=== PATIENT | male | born 1970 | race Caucasian/White ===

== ENCOUNTER 2021-05-01 15:19 | Observation (INO) | payer BC, OTHER ==
[2021-05-01 16:12] LABS: Glucose,Whole Blood 94 mg/dL (75-99)
--- NOTE | 2021-05-01 17:06 | CT ---
EXAMINATION TYPE: CT brain wo con for TPA DATE OF EXAM: 05/01/2021 COMPARISON: None HISTORY: Left foot numbness and inability to flex the ankle. CT DLP: 1158.4 mGycm Automated exposure control for dose reduction was used. Ventricles and sulci appear normal. There is no mass effect nor midline shift. There is no sign of in tracranial hemorrhage. The calvarium is intact. There is normal aeration of the mastoid sinuses. IMPRESSION: Normal unenhanced head CT scan.
--- NOTE | 2021-05-01 17:21 | XR ---
EXAMINATION TYPE: XR lumbosacral spine min 4V DATE OF EXAM: 05/01/2021 COMPARISON: NONE HISTORY: Foot numbness TECHNIQUE: 5 views FINDINGS: Lumbar vertebra have normal alignment. Posterior elements are intact. There is some narrowi ng at L3-4 and L4-5 disc spaces. There is mild spurring of the endplates. There is no compression fra cture. Sacroiliac joints are intact. There are multiple calcifications over the kidneys. IMPRESSION: Degenerative changes in the lumbar spine. No fracture. Numerous renal calculi.
[2021-05-01 17:45] LABS: Anisocytosis Slight; Basophils # (A) 0.1 k/uL (0-0.2); Basophils % (A) 1 %; Eosinophils # (A) 0.2 k/uL (0-0.7); Eosinophils % (A) 3 %; HGB 13.1 gm/dL (13.0-17.5); Lymphocytes # (A) 2.1 k/uL (1.0-4.8); Lymphocytes % (A) 30 %; MCH 29.6 pg (25.0-35.0); MCHC 31.3 g/dL (31.0-37.0); MCV 94.6 fL (80.0-100.0); Monocytes # (A) 0.4 k/uL (0-1.0); Monocytes % (A) 6 %; Neutrophils % (A) 58 %; Platelet Count 312 k/uL (150-450); RBC 4.44 m/uL (4.30-5.90); RDW 17.3 % (11.5-15.5); WBC 6.9 k/uL (3.8-10.6)
[2021-05-01 17:55] LABS: ALT 28 U/L (4-49); AST 46 U/L (17-59); African American GFR (CKD) >90 (>60 ml/min/1.73 sqM); Albumin 4.7 g/dL (3.5-5.0); Alkaline Phosphatase 114 U/L (38-126); Anion Gap 9 mmol/L; Blood Urea Nitrogen 13 mg/dL (9-20); Calcium 9.5 mg/dL (8.4-10.2); Carbon Dioxide 27 mmol/L (22-30); Chloride 103 mmol/L (98-107); Glucose 122 mg/dL (74-99); Non-African American GFR(CKD) >90 (>60 ml/min/1.73 sqM); Potassium 3.8 mmol/L (3.5-5.1); Sodium 139 mmol/L (137-145); Total Bilirubin 0.2 mg/dL (0.2-1.3); Total Protein 7.4 g/dL (6.3-8.2)
[2021-05-01] MEDS ORDERED: ASPIRIN 325 MG TAB PO STA (17:58)
--- NOTE | 2021-05-01 18:01 | ED ---
General Adult HPI - General Chief complaint: Extremity Problem,Nontraumatic Stated complaint: L foot numbness Time Seen by Provider: 05/01/21 16:20 Source: patient, RN notes reviewed, old records reviewed Mode of arrival: wheelchair Limitations: no limitations - History of Present Illness Initial comments: 51-year-old male resents for evaluation of numbness in the left foot, and inability to flex at the ankle. Patient denies injury. He does have chronic back pain. But denies new or worsening pain in the back. He has no history of TIA or CVA. He denies weakness in the upper extremities. No facial droop. No abnormal speech. No headache. - Related Data Home Medications Medication Instructions Recorded Confirmed Gabapentin [Neurontin] 900 mg PO TID 05/01/21 05/01/21 HYDROcodone/APAP 10-325MG [[place] 1 tab PO Q6H PRN 05/01/21 05/01/21 10-325] Pantoprazole Sodium [Protonix] 40 mg PO BID 05/01/21 05/01/21 Allergies Allergy/AdvReac Type Severity Reaction Status Date / Time morphine Allergy Itching Verified 05/01/21 18:11 propoxyphene AdvReac Nausea & Verified 05/01/21 18:11 [From Darvocet-N] Vomiting & Diarrhea Review of Systems ROS Statement: Those systems with pertinent positive or pertinent negative responses have been documented in the HPI. ROS Other: All systems not noted in ROS Statement are negative. Past Medical History Past Medical History: GERD/Reflux History of Any Multi-Drug Resistant Organisms: None Reported Past Surgical History: Orthopedic Surgery Additional Past Surgical History / Comment(s): neal hands Past Psychological History: No Psychological Hx Reported Smoking Status: Current every day smoker Past Alcohol Use History: None Reported Past Drug Use History: None Reported General Exam Limitations: no limitations General appearance: alert, in no apparent distress Head exam: Present: atraumatic, normocephalic Eye exam: Present: normal appearance, PERRL ENT exam: Present: normal exam Neck exam: Present: normal inspection. Absent: tenderness, meningismus Respiratory exam: Present: normal lung sounds bilaterally. Absent: respiratory distress Cardiovascular Exam: Present: regular rate, normal rhythm GI/Abdominal exam: Present: soft. Absent: distended, tenderness, guarding Extremities exam: Present: normal inspection, normal capillary refill, other (Distal pulses intact) Neurological exam: Present: alert, oriented X3, CN II-XII intact, motor sensory deficit (Sensory deficit on the dorsum of the foot, inability to dorsiflex left foot otherwise unremarkable neurologic exam.) Psychiatric exam: Present: normal affect, normal mood Skin exam: Present: warm, dry, intact Course Vital Signs 05/01/21 16:01 Temperature 98.3 F Pulse Rate 85 Respiratory 20 Rate Blood Pressure 133/93 O2 Sat by Pulse 100 Oximetry - Reevaluation(s) Reevaluation #1: 05/01/21 1754 I did discuss case with Dr. Bright, for neurology. Does recommend workup for central cause of weakness, rule out CVA and he will see the patient in consultation tomorrow. EKG Findings - EKG Comments: EKG Findings:: EKG: Normal sinus rhythm, right bundle-branch block, rate of 77, MS interval 136, QRS duration 148, QTC [address] segment elevation. Medical Decision Making - Medical Decision Making 51-year-old male with left foot numbness and inability to dorsiflex. Patient has good proximal strength in all extremities. NIH of 14 sensory deficit in the top of the foot. Otherwise unremarkable neurologic exam. This may be foot drop secondary to a peripheral nerve injury however after I discussed case with Dr. Bright he did recommend to rule out CVA in this patient. CT of the brain was ordered which is negative for hemorrhage or acute findings. Patient will be admitted on aspirin and IV fluids for CVA rule out. Case discussed with [facility] - Lab Data Result diagrams: 05/01/21 17:36 05/01/21 17:36 Lab Results 05/01/21 05/01/21 05/01/21 Range/Units 16:10 17:36 17:36 WBC 6.9 (3.8-10.6) k/uL RBC 4.44 (4.30-5.90) m/uL Hgb 13.1 (13.0-17.5) gm/dL Hct 42.0 (39.0-53.0) % MCV 94.6 (80.0-100.0) fL MCH 29.6 (25.0-35.0) pg MCHC 31.3 (31.0-37.0) g/dL RDW 17.3 H (11.5-15.5) % Plt Count 312 (150-450) k/uL MPV 7.0 Neutrophils % 58 % Lymphocytes % 30 % Monocytes % 6 % Eosinophils % 3 % Basophils % 1 % Neutrophils # 4.0 (1.3-7.7) k/uL Lymphocytes # 2.1 (1.0-4.8) k/uL Monocytes # 0.4 (0-1.0) k/uL Eosinophils # 0.2 (0-0.7) k/uL Basophils # 0.1 (0-0.2) k/uL Anisocytosis Slight PT 10.2 (9.0-12.0) sec INR 0.9 (<1.2) APTT 24.7 (22.0-30.0) sec Sodium (137-145) mmol/L Potassium (3.5-5.1) mmol/L Chloride (98-107) mmol/L Carbon Dioxide (22-30) mmol/L Anion Gap mmol/L BUN (9-20) mg/dL Creatinine (0.66-1.25) mg/dL Est GFR (CKD-EPI)AfAm (>60 ml/min/1.73 sqM) Est GFR (CKD-EPI)NonAf (>60 ml/min/1.73 sqM) Glucose (74-99) mg/dL POC Glucose (mg/dL) 94 (75-99) mg/dL POC Glu Pest Control Worker ID [facility] Calcium (8.4-10.2) mg/dL Total Bilirubin (0.2-1.3) mg/dL AST (17-59) U/L ALT (4-49) U/L Alkaline Phosphatase (38-126) U/L Troponin I (0.000-0.034) ng/mL Total Protein (6.3-8.2) g/dL Albumin (3.5-5.0) g/dL 05/01/21 05/01/21 Range/Units 17:36 17:36 WBC (3.8-10.6) k/uL RBC (4.30-5.90) m/uL Hgb (13.0-17.5) gm/dL Hct (39.0-53.0) % MCV (80.0-100.0) fL MCH (25.0-35.0) pg MCHC (31.0-37.0) g/dL RDW (11.5-15.5) % Plt Count (150-450) k/uL MPV Neutrophils % % Lymphocytes % % Monocytes % % Eosinophils % % Basophils % % Neutrophils # (1.3-7.7) k/uL Lymphocytes # (1.0-4.8) k/uL Monocytes # (0-1.0) k/uL Eosinophils # (0-0.7) k/uL Basophils # (0-0.2) k/uL Anisocytosis PT (9.0-12.0) sec INR (<1.2) APTT (22.0-30.0) sec Sodium 139 (137-145) mmol/L Potassium 3.8 (3.5-5.1) mmol/L Chloride 103 (98-107) mmol/L Carbon Dioxide 27 (22-30) mmol/L Anion Gap 9 mmol/L BUN 13 (9-20) mg/dL Creatinine 0.95 (0.66-1.25) mg/dL Est GFR (CKD-EPI)AfAm >90 (>60 ml/min/1.73 sqM) Est GFR (CKD-EPI)NonAf >90 (>60 ml/min/1.73 sqM) Glucose 122 H (74-99) mg/dL POC Glucose (mg/dL) (75-99) mg/dL POC Glu Pest Control Worker ID Calcium 9.5 (8.4-10.2) mg/dL Total Bilirubin 0.2 (0.2-1.3) mg/dL AST 46 (17-59) U/L ALT 28 (4-49) U/L Alkaline Phosphatase 114 (38-126) U/L Troponin I <0.012 (0.000-0.034) ng/mL Total Protein 7.4 (6.3-8.2) g/dL Albumin 4.7 (3.5-5.0) g/dL Disposition Clinical Impression: Foot drop, left foot Narrative: Rule out CVA versus peripheral nerve injury Disposition: ADMITTED IP TO THIS [facility] Condition: Stable Is patient prescribed a controlled substance at d/c from ED?: No Referrals: Nonstaff,Physician [Primary Care Provider] - 1-2 days Decision to Admit Reason: Admit from EC Decision Date: 05/01/21 Decision Time: 18:01
[2021-05-01 18:18] LABS: INR 0.9 (<1.2); Partial Thromboplastin Time 24.7 sec (22.0-30.0); Prothrombin Time 10.2 sec (9.0-12.0)
[2021-05-01 20:31] LABS: T4, Free (Free Thyroxine) 0.98 ng/dL (0.78-2.19)
[2021-05-01] MEDS ORDERED: ATORVASTATIN 80 MG TAB PO SCH (21:00)
[2021-05-01] MEDS: SODIUM CHLORIDE 0.9% 1,000 ML IV SCH (21:46)
[2021-05-02] MEDS: HYDROcodone/APAP 10-325MG 1 EACH TAB PO PRN ×4 (00:08→20:42)
[2021-05-02] MEDS: GABAPENTIN 300 MG CAP PO SCH ×4 (00:08→21:06)
[2021-05-02 05:18] LABS: Hemoglobin A1C 5.5 % (4.0-6.0)
--- NOTE | 2021-05-02 08:23 | US ---
EXAMINATION TYPE: US carotid duplex BILAT DATE OF EXAM: 05/02/2021 COMPARISON: NONE CLINICAL HISTORY: Stenosis. Acute onset neuro deficit EXAM MEASUREMENTS: RIGHT: Peak Systolic Velocity (PSV) cm/sec ----- Right CCA: 82.3 ----- Right ICA: 86.7 ----- Right ECA: 77.9 ICA/CCA ratio: 1.1 RIGHT: End Diastole cm/sec ----- Right CCA: 27.4 ----- Right ICA: 30.7 ----- Right ECA: 17.5 LEFT: Peak Systolic Velocity (PSV) cm/sec ----- Left CCA: 80.5 ----- Left ICA: 99.0 ----- Left ECA: 46.2 ICA/CCA ratio: 1.2 LEFT: End Diastole cm/sec ----- Left CCA: 26.3 ----- Left ICA: 40.9 ----- Left ECA: 16.5 VERTEBRALS (direction of flow): Right Vertebral: Antegrade Left Vertebral: Antegrade Rhythm: Normal No significant stenosis seen. No elevated velocities. Grayscale images show no significant focal plaque. IMPRESSION: No hemodynamically significant stenosis in either internal carotid artery. NASCET criteria was used in interpretation of this exam? Criteria for Assigning % of Stenosis / Diameter reduction (Estimation based on the indirect measurements of the internal carotid artery velocities (ICA PSV). 1. Normal (no stenosis)=ICA PSV < 125 cm/s: ratio < 2.0: ICA EDV<40 cm/s. 2. Less than 50% stenosis=ICA PSV < 125 cm/s: ratio < 2.0: ICA EDV<40 cm/s. 3. 50 to 69% stenosis=ICA PSV of 125 to 230 cm/s: ration 2.0 ? 4.0: ICA EDV 40-100 cm/s. 4. Greater than 70% stenosis to near occlusion= ICA PSV > 230 cm/s: ratio > 4.0: ICA EDV > 100 cm/s. 5. Near occlusion= ICA PSV velocities may be low or undetectable: variable ratio and ICA EDV. 6. Total occlusion=unable to detect flow.
[2021-05-02] MEDS ORDERED: ASPIRIN 325 MG TAB PO SCH (09:00)
[2021-05-02] MEDS: PANTOPRAZOLE 40 MG TABLET PO SCH ×2 (09:58→20:41)
--- NOTE | 2021-05-02 11:07 | ECHOF ---
Referral Reason:Thrombus MEASUREMENTS -------- HEIGHT: 175.3 cm WEIGHT: 74.8 kg BP: 167/103 RVIDd: 3.4 cm (< 3.3) IVSd: 1.2 cm (0.6 - 1.1) LVIDd: 5.3 cm (3.9 - 5.3) LVPWd: 0.9 cm (0.6 - 1.1) IVSs: 1.5 cm LVIDs: 3.2 cm LVPWs: 1.9 cm LAESV Index (A-L): 18.24 ml/m Ao Diam: 3.7 cm (2.0 - 3.7) AV Cusp: 2.4 cm (1.5 - 2.6) LA Diam: 3.4 cm (2.7 - 3.8) MV EXCURSION: 16.144 mm (> 18.000) MV EF SLOPE: 83 mm/s (70 - 150) EPSS: 0.6 cm MV E Jose Alejandro: 0.92 m/s MV DecT: 186 ms MV A Jose Alejandro: 0.80 m/s MV E/A Ratio: 1.14 RAP: 5.00 mmHg RVSP: 28.70 mmHg FINDINGS -------- Sinus rhythm. This was a technically adequate study. The left ventricular size is normal. There is mild concentric left ventricular hypertrophy. Overa ll left ventricular systolic function is normal with, an EF between 55 - 60 %. The diastolic fillin g pattern is normal for the age of the patient 10.22. The right ventricle is mildly enlarged. Normal LA size by volume 22+/-6 ml/m2. The right atrial size is normal. Interatrial and interventricular septum intact. There is no evidence of aortic regurgitation. There is no evidence of aortic stenosis. No mitral regurgitation. Mild tricuspid regurgitation present. There is no evidence of pulmonary hypertension. The right v entricular systolic pressure, as measured by Doppler, is 28.70mmHg. There is no pulmonic regurgitation present. The aortic root size is normal. The inferior vena cava is mildly dilated. There is no pericardial effusion. CONCLUSIONS -------- 1. The left ventricular size is normal. 2. There is mild concentric left ventricular hypertrophy. 3. Overall left ventricular systolic function is normal with, an EF between 55 - 60 %. 4. The diastolic filling pattern is normal for the age of the patient 10.22 5. The right ventricle is mildly enlarged. 6. Mild tricuspid regurgitation present. 7. The inferior vena cava is mildly dilated. BOOM STICK MAN: Rita Corado RDCS
--- NOTE | 2021-05-02 11:39 | P.CNNES ---
History of Present Illness Consult date: 05/02/21 Requesting physician: Blayne Khan Reason for Consult: left foot drop History of Present Illness: This is a 51-year-old right-handed gentleman with medical history of chronic low back pain, GERD who presented emergency department on 05/01/2021 because of numbness and weakness on the left foot. 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 He noticed the symptoms at around 5am on 05/01/2021 and last normal was on 04/30 at around 11pm. He has chronic lower back pain, and it is in the lower region of back in center area and radiates across but denies any worsening of his lower back. He denies any weakness or numbness any where else. Denies of visual disturbance, speech difficulty, difficulty swallowing. He denies any bladder or bowel incontinence or anything that is new. Denies facial weakness. He denies trauma to his lower extremities. He denies history of stroke or TIA. He denies any fever, any gastrointestinal symptoms or respiratory symptoms. He smokes about 1/2PPD and has been smoking for 35 years (in past he used to smoke upto 3PPD). He rarely drinks alcohol. He denies of illicit drug use. Regarding his lower back pain in the past he had MRI and currently follows-up with pain specialist. His home medication consists of both tonic 4 mg 1 tablet twice a day, [place] 10- 325mg 1 tab Q6hr, and Gabapentin 300mg 3 tab tid (he sometimes only takes bid if driving). Workup in the hospital consisted of: Initial vital signs as a blood pressure 133/93, heart rate of 85, respiratory of 20, temperature of 98.3 Fahrenheit oral pulse ox of 100% at room air. CBC with differential seems unremarkable. Chemistry panel also seems unremarkable. Calcium is 9.5, AST of 46 and ALT of 28 which is within normal limits. CT of the head is reported as normal unenhanced head CT scan. Lumbar x-rays reported as degenerative changes in the lumbar spine. No fracture. Numerous renal calculi. In the body of the report it is reported that there is some narrowing at the L3-L4 and L4-L5. Carotid duplex: No hemodynamically significant stenosis in either internal carotid artery. EKG is reported as normal sinus rhythm. Right bundle branch block. Abnormal EKG. TSH: 0220 (low) but Free T4: 0.98 (normal). Hemoglobin A1c: 5.5 (normal). Review of Systems Review of system: The 12 point system was reviewed and apparent positive and negative per HPI. Past Medical History Past Medical History: GERD/Reflux History of Any Multi-Drug Resistant Organisms: None Reported Past Surgical History: Orthopedic Surgery Additional Past Surgical History / Comment(s): neal hands Past Psychological History: No Psychological Hx Reported Smoking Status: Current every day smoker Past Alcohol Use History: None Reported Past Drug Use History: None Reported - Past Family History Mother Family Medical History: Dementia Father Family Medical History: Renal Disease Medications and Allergies Home Medications Medication Instructions Recorded Confirmed Type Gabapentin [Neurontin] 900 mg PO TID 05/01/21 05/01/21 History HYDROcodone/APAP 10-325MG [[place] 1 tab PO Q6H PRN 05/01/21 05/01/21 History 10-325] Pantoprazole Sodium [Protonix] 40 mg PO BID 05/01/21 05/01/21 History Allergies Allergy/AdvReac Type Severity Reaction Status Date / Time morphine Allergy Itching Verified 05/01/21 18:11 propoxyphene AdvReac Nausea & Verified 05/01/21 18:11 [From Angela-N] Vomiting & Diarrhea Physical Examination - Vital Signs Vital Signs: Vital Signs Temp Pulse Resp BP Pulse Ox 05/01/21 16:01 98.3 F 85 20 133/93 100 Intake and Output 05/01/21 05/01/21 05/01/21 06:59 14:59 22:59 Other: Weight 77.111 kg GENERAL: The patient is lying in bed and is not in acute distress. CHEST: The heart rate is regular rate rhythm. No murmurs to auscultation. No carotid bruit bilaterally. LUNG: Clear to auscultation bilaterally no wheezing noted throughout. Not labored breathing. ABDOMEN/GI: Bowel sounds present in all 4 quadrants. No tenderness to palpation throughout. NEUROLOGICAL: Higher mental function: The patient is awake, alert, oriented to self, place and time. Patient is following commands. No aphasia and no neglect. Cranial nerves: The pupils are round, equal and reactive to light and accom modation. Visual wong are full to confrontation throughout. Extraocular movement is intact no nystagmus is noted. Facial sensation is normal to touch throughout. The facial strength is normal throughout. Hearing is normal bilaterally to hand rub. Tongue is midline and moved [id number] without any difficulty. No dysarthria is noted. Shoulder shrug is normal bilaterally. Motor: Gait is deferred. The strength is left ankle dorsiflexion and inversion is 0/5. Left ankle plantarflexion is 5-. Otherwise 5/5 throughout. Normal tone and bulk. Cerebellum: Normal finger to nose bilaterally. Sensation: Sensation is decreased to touch and pinprick in the proximal left dorsum ankle region (he felt yesterday it was distal ankle region). Otherwise normal throughout. Reflexes (right/left): 2+ throughout except patellar are 2-3+ bilaterally. Plantars are downgoing bilaterally. Results - Laboratory Findings CBC and BMP: 05/01/21 17:36 08 17:36 Abnormal Lab Findings: Abnormal Labs 05/01/21 05/01/21 17:36 17:36 RDW 17.3 H Glucose 122 H Assessment and Plan Assessment: Left foot drop. Unknown exact etiology at this time (possibly due to compression from position he slept. Rule out mass effect in lower back and ischemic stroke (unlikely). Chronic lower back pain History of GERD Nicotine use (smoke 1/2 PPD and has been smoking for 35 years). Plan: The ED team ordered 2-D echo, lipid panel. I ordered MRI of the lumbar spine and MRI Brain. ED team's gave the patient aspirin 325mg once inside the patient on aspirin 325 daily and Lipitor 80 mg daily at bedtime for secondary stroke prophylaxis. I lowered it to ASA 81mg and Lipitor 40mg daily. PT, OT and DIRECTOR DIGITAL COMMUNICATIONS are consulted. Recommend left ankle-foot orthosis (AFO) as inpatient. Recommend EMG with nerve conduction study as an outpatient. We'll defer the rest of the medical management to the primary team. Patient is counseled on tobacco cessation. The plan is discussed with the patient and his nurse. Thank you for the consultation. William Bright M.D. Neuro-hospitalist Time with Patient: Greater than 30
--- NOTE | 2021-05-02 12:42 | MR ---
EXAMINATION TYPE: MR brain wo con DATE OF EXAM: 05/02/2021 12:33 PM COMPARISON: NONE HISTORY: Left foot weakness, CVA FINDINGS: The ventricles, basal cisterns and sulci overlying the cerebral convexities are mildly enlarged. There is evidence of mild periventricular white matter ischemic demyelination. Remote deep white matter insults are also noted. No acute edema is seen on diffusion weighted imaging. There is no evidence for midline shift or mass effect. Acute intracranial hemorrhage or extra-axial collection is not evident. The paranasal sinuses and mastoid air cells are well-aerated. IMPRESSION: Age-related atrophic and chronic small vessel ischemic change. No acute intracranial process at this time.
--- NOTE | 2021-05-02 13:00 | P.HPIM ---
History of Present Illness This is a pleasant 51 years old male with past medical history of GERD. Patient presents because of left foot numbness with difficulty walking secondary to weakness in his left foot especially with dorsiflexion of one-day duration. He has chronic back pain but no headache or weakness in other parts of the body. No blurred vision or slurred speech Denies chest pain or dyspnea. No change in urine or bowel habits. No fever He smokes half pack per day and he was counseled to quit and he agrees to the nicotine patch. No alcohol or illicit drugs Vitas looks stable, blood pressure is slightly elevated at 167/103. Labs including CBC, INR, BMP, liver enzymes and troponins are unremarkable. He is edges slightly low at 0.2, normal free T4 0.9. Local slightly elevated at 122. Carotid Doppler: No significant stenosis. Lumbar spine x-ray: Degenerative changes in the lumbar spine. No fracture. Numerous renal calculi CT of the brain:no acute process. EKG: Normal sinus rhythm at [address]-T changes Review of Systems CONSTITUTIONAL: No fever, no malaise, no fatigue. HEENT: No recent visual problems or hearing problems. Denied any sore throat. CARDIOVASCULAR: No orthopnea, PND, no palpitations, no syncope. PULMONARY: No shortness of breath, no cough, no hemoptysis. GASTROINTESTINAL: No diarrhea, no nausea, no vomiting, no abdominal pain. Normoactive bowel sounds. NEUROLOGICAL: No headaches, no weakness, no numbness. HEMATOLOGICAL: Denies any bleeding or petechiae. GENITOURINARY: Denies any burning micturition, frequency, or urgency. MUSCULOSKELETAL/RHEUMATOLOGICAL: Denies any joint pain, swelling, or any muscle pain. ENDOCRINE: Denies any polyuria or polydipsia. Past Medical History Past Medical History: GERD/Reflux History of Any Multi-Drug Resistant Organisms: None Reported Past Surgical History: Orthopedic Surgery Additional Past Surgical History / Comment(s): neal hands Past Psychological History: No Psychological Hx Reported Smoking Status: Current every day smoker Past Alcohol Use History: None Reported Past Drug Use History: None Reported - Past Family History Mother Family Medical History: Dementia Father Family Medical History: Renal Disease Medications and Allergies Home Medications Medication Instructions Recorded Confirmed Type Gabapentin [Neurontin] 900 mg PO TID 05/01/21 05/01/21 History HYDROcodone/APAP 10-325MG [[place] 1 tab PO Q6H PRN 05/01/21 05/01/21 History 10-325] Pantoprazole Sodium [Protonix] 40 mg PO BID 05/01/21 05/01/21 History Allergies Allergy/AdvReac Type Severity Reaction Status Date / Time morphine Allergy Itching Verified 05/01/21 18:11 propoxyphene AdvReac Nausea & Verified 05/01/21 18:11 [From Darvocet-N] Vomiting & Diarrhea Physical Exam Vitals: Vital Signs Temp Pulse Pulse Resp BP BP BP 05/02/21 04:00 70 18 167/103 05/02/21 00:00 98.0 F 83 18 169/106 167/102 05/01/21 16:01 98.3 F 85 20 133/93 Pulse Ox 05/02/21 04:00 99 05/02/21 00:00 100 05/01/21 16:01 100 Intake and Output 05/01/21 05/02/21 05/02/21 22:59 06:59 14:59 Output Total 900 550 Balance -900 -550 Output: Urine 900 550 Other: # Bowel Movements 1 Weight 77.111 kg 75 kg GENERAL: The patient is alert and oriented x3, not in any acute distress. Well developed, well nourished. HEENT: Pupils are round and equally reacting to light. EOMI. No scleral icterus. No conjunctival pallor. Normocephalic, atraumatic. No pharyngeal erythema. No thyromegaly. CARDIOVASCULAR: S1 and S2 present. No murmurs, rubs, or gallops. PULMONARY: Chest is clear to auscultation, no wheezing or crackles. ABDOMEN: Soft, nontender, nondistended, normoactive bowel sounds. No palpable organomegaly. MUSCULOSKELETAL: No joint swelling or deformity. EXTREMITIES: No cyanosis, clubbing, or pedal edema. -NEUROLOGICAL: Gross neurological examination did not reveal any focal deficits. Left foot is weak dorsiflexion and numbness on the dorsum SKIN: No rashes. No petechiae Results CBC & Chem 7: 05/01/21 17:36 05/01/21 17:36 Labs: Abnormal Lab Results - Last 24 Hours (Table) 05/01/21 05/01/21 05/01/21 Range/Units 17:36 17:36 19:00 RDW 17.3 H (11.5-15.5) % Glucose 122 H (74-99) mg/dL TSH 0.220 L (0.465-4.680) mIU/L Thrombosis Risk Factor Assmnt - Choose All That Apply Each Factor Represents 1 point: Age 41-60 years Thrombosis Risk Factor Assessment Total Risk Factor Score: 1 Thrombosis Risk Factor Assessment Level: Low Risk Assessment and Plan Assessment: Left foot weakness and numbness, possible stroke versus neuropathy History of GERD High blood pressure, Nicotine dependence Plan: This is a pleasant 51 years old male who presents with left foot weakness and numbness. Continue with aspirin. Neurology consult Labs and medication were reviewed.. Continue same treatment. Continue with symptomatic treatment. Resume home medication. Monitor lytes and vitals. DVT and GI prophylaxis. Further recommendations depends on the clinical course of the patient DVT prophylaxis: Subcutaneous heparin GI Prophylaxis: Pepcid PT/OT: Pending Prognosis is guarded
--- NOTE | 2021-05-02 13:17 | MR ---
EXAMINATION TYPE: MR lumbar spine wo/w con DATE OF EXAM: 05/02/2021 12:37 PM COMPARISON: NONE HISTORY: Left foot weakness with low back pain CONTRAST: The patient was injected with 7 mL intravenous Gadavist gadolinium contrast. Multiplanar, MultiSpin echo imaging of the lumbar spine was performed. L1-L2: Normal disc appearance without desiccation. No herniation, protrusion or disc bulging. No ca nal stenosis is present. Foramina are patent bilaterally. L2-L3: Mild decreased signal and loss of height compatible degenerative disc disease. Posterior disc bulging noted. Minimal effacement ventral thecal sac. No evidence for central stenosis or disc hernia tion. L3-L4: Moderate disc desiccation. Subligamentous posterocentral broad-based disc herniation effaces t he ventral thecal sac. There is central stenosis noted mild to moderate in degree with bilateral late ral recess stenosis and bilateral foraminal encroachment. L4-L5: Moderate disc desiccation. Subligamentous posterocentral broad-based disc herniation effaces t he ventral thecal sac. There is central stenosis noted mild in degree with bilateral lateral recess s tenosis and bilateral foraminal encroachment. L5-S1: Moderate to severe decreased signal ossified compatible degenerative disc disease. Subligament ous left paracentral disc herniation mildly effaces the ventral thecal sac. No evidence for central s tenosis or lateral recess stenosis. Moderate bilateral foraminal encroachment. Lumbar segments are intact. No paraspinal masses are identified. Conus medullaris has a normal appe arance. IMPRESSION: 1. Multilevel degenerative disc disease as discussed. 2. Multilevel central stenosis at L3-4 and L4-5. 3. Left lateral subligamentous disc herniation at L5-S1 with a left foraminal encroachment as well as a right-sided foraminal encroachment.
[2021-05-02] MEDS: NICOTINE 21MG/24HR PATCH TRANSDERM SCH (16:54)
[2021-05-02] MEDS: SODIUM CHLORIDE 0.9% 1,000 ML IV SCH ×2 (16:55→20:47)
[2021-05-02 18:24] LABS: Chol/HDL Ratio 2.55
[2021-05-02] MEDS: HEPARIN SODIUM,PORCINE/PF 5,000 UNIT/0.5 ML SYRINGE SQ SCH (20:41)
[2021-05-02] MEDS: FAMOTIDINE 20 MG/2 ML VIAL IV SCH (20:41)
[2021-05-02] MEDS ORDERED: ATORVASTATIN 40 MG TAB PO SCH (21:00)
[2021-05-03] MEDS: HYDROcodone/APAP 10-325MG 1 EACH TAB PO PRN ×3 (02:36→15:42)
[2021-05-03] MEDS: SODIUM CHLORIDE 0.9% 1,000 ML IV SCH (02:38)
[2021-05-03 07:56] VITALS: PULSE 82; RESP 20; TEMP 98.4
--- NOTE | 2021-05-03 08:55 | P.PN ---
Subjective Progress Note Date: 05/03/21 The patient seen at bedside and he feels he is about the same. He denies any progression of his symptoms. He denies of any new neurological problems. Objective - Vital Signs Vital signs: Vital Signs Temp 98.4 F 05/03/21 07:54 Pulse 82 05/03/21 07:54 Resp 20 05/03/21 07:54 BP 146/80 05/03/21 07:54 Pulse Ox 98 05/03/21 07:54 Intake & Output 05/02/21 05/03/21 05/03/21 18:59 06:59 18:59 Intake Total 1080 Output Total 550 Balance 530 Weight 78.5 kg Intake: Oral 1080 Output: Urine 550 Other: Voiding Method Toilet # Voids 2 - Exam GENERAL: The patient is lying in bed and is not in acute distress. NEUROLOGICAL: Higher mental function: The patient is awake, alert, oriented to self, place and time. Patient is following commands. No aphasia and no neglect. Cranial nerves: The pupils are round, equal and reactive to light and accommodation. Visual wong are full to confrontation throughout. Extraocular movement is intact no nystagmus is noted. Facial sensation is normal to touch throughout. The facial strength is normal throughout. Hearing is normal bilaterally to hand rub. Tongue is midline and moved [id number] without any difficulty. No dysarthria is noted. Shoulder shrug is normal bilaterally. Motor: Gait is deferred. The strength is left ankle dorsiflexion and inversion is 0/5. Left ankle plantarflexion is 5-. Otherwise 5/5 throughout. Normal tone and bulk. Cerebellum: Normal finger to nose bilaterally. Sensation: Sensation is decreased to touch and pinprick in the proximal left dorsum ankle region (he felt yesterday it was distal ankle region). Otherwise normal throughout. Reflexes (right/left): 2+ throughout except patellar are 2-3+ bilaterally. Plantars are downgoing bilaterally. WORK-UP: Calcium is 9.5, AST of 46 and ALT of 28 which is within normal limits. TSH is 0.220 which is low but the free T4 is 0.98 was considered within normal limits. Lipid panel is triglycerides 1:15, cholesterol is 125, LDL 53 and HDL is 49. 2-D echo was reported as mild concentric left ventricle hypertrophy. Ejection fraction of 55-60%. CT of the head is reported as normal unenhanced head CT scan. Lumbar x-rays reported as degenerative changes in the lumbar spine. No fracture. Numerous renal calculi. In the body of the report it is reported that there is some narrowing at the L3-L4 and L4-L5. Carotid duplex: No hemodynamically significant stenosis in either internal carotid artery. EKG is reported as normal sinus rhythm. Right bundle branch block. Abnormal EKG. TSH: 0220 (low) but Free T4: 0.98 (normal). Hemoglobin A1c: 5.5 (normal). MR the brain is reported as age-related atrophic and chronic small vessel ischemic change. No acute intracranial process seen at this time. MRI of lumbar spine is reported as multilevel degenerative disc disease as discussed. Multilevel central stenosis at L3-L4 and L4-L5. Left lateral sublig amentous disc herniation at L5-S1 with a left foraminal encroachment as well as right-sided foraminal encroachment. - Labs CBC & Chem 7: 05/01/21 17:36 05/01/21 17:36 Assessment and Plan Assessment: * Left foot drop. Seem possibly due to compression from position he slept. Has disc herniation at L5-S1 (seen on MRI) but I feel less likely (patient denies of any lower back pain that is worsened or any radiation). * Lumbosacral spondylosis (Moderate L3-L4, L4-L5 and L5-S1). * Chronic lower back pain * History of GERD * Nicotine use (smoke 1/2 PPD and has been smoking for 35 years). Plan: I stopped the ASA that was started in our facility (325mg daily) since does not have stroke. Regarding use of Lipitor that was started in our facility, from neurological perspective is not needed and will defer use of it to primary team. PT, OT and EXPLOSIVE ORDNANCE MANAGER are consulted. Consulted Orthopedic surgery team for lumbosacral spondylosis. Recommend left ankle-foot orthosis (AFO) as inpatient. Recommend EMG with nerve conduction study as an outpatient. We'll defer the rest of the medical management to the primary team. Patient is counseled on tobacco cessation. Patient was notified that he needs to follow-up with a neurologist as outpatient within 1-2 weeks. The plan is discussed with the patient. Patient is clear from neurological perspective after been seen by Orthopedic team. William Bright M.D. Neuro-hospitalist Time with Patient: Less than 30
[2021-05-03] MEDS ORDERED: ASPIRIN 81 MG PO SCH (09:00)
[2021-05-03] MEDS ORDERED: amLODIPine 5 MG TAB PO SCH (09:00)
[2021-05-03] MEDS: FAMOTIDINE 20 MG/2 ML VIAL IV SCH (09:40)
[2021-05-03] MEDS: NICOTINE 21MG/24HR PATCH TRANSDERM SCH (09:40)
[2021-05-03] MEDS: GABAPENTIN 300 MG CAP PO SCH ×2 (09:40→15:42)
[2021-05-03] MEDS: PANTOPRAZOLE 40 MG TABLET PO SCH (09:41)
[2021-05-03] MEDS: HEPARIN SODIUM,PORCINE/PF 5,000 UNIT/0.5 ML SYRINGE SQ SCH (09:41)
[2021-05-03] MEDS ORDERED: DEXAMETHASONE SOD PHOSPHATE 10 MG/ML 1 ML VIAL IV STA (10:01)
[2021-05-03] MEDS ORDERED: DEXAMETHASONE SOD PHOSPHATE 10 MG/ML 1 ML VIAL IV ONE (10:03)
--- NOTE | 2021-05-03 10:32 | P.CNOR ---
History of Present Illness - [facility] Consult date: 05/03/21 Requesting physician: William Bright Consult reason: other (Lumbosacral spondylosis. Has left foot drop) History of present illness: 51-year-old male presents hospital with left footdrop. Patient says this began two mornings ago when he woke up from sleep. He says he is not able to dorsifl ex the left foot. He says he has some tingling on his pinky toe on his left foot. He said when he woke up his legs were dangling off of his bed and he says he thinks it is probably from the way he was sleeping. 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 Patient denies any previous orthopedic surgery. Patient does say he has lower back pain most in the mid spine. He does say it radiates to both sides, but does not elaborate when his back pain is exacerbated. Patient denies any trauma/injuries to his lower back. Patient does say he has some lumbar back but this has been an ongoing issue over years. Patient denies chest pain, fever, SOB, nauseas/vomiting, loss of bowel/bladder control. Past Medical History Past Medical History: GERD/Reflux History of Any Multi-Drug Resistant Organisms: None Reported Past Surgical History: Orthopedic Surgery Additional Past Surgical History / Comment(s): neal hands Past Psychological History: No Psychological Hx Reported Smoking Status: Current every day smoker Past Alcohol Use History: None Reported Past Drug Use History: None Reported - Past Family History Mother Family Medical History: Dementia Father Family Medical History: Renal Disease Medications and Allergies Home Medications Medication Instructions Recorded Confirmed Type Gabapentin [Neurontin] 900 mg PO TID 05/01/21 05/01/21 History HYDROcodone/APAP 10-325MG [[place] 1 tab PO Q6H PRN 05/01/21 05/01/21 History 10-325] Pantoprazole Sodium [Protonix] 40 mg PO BID 05/01/21 05/01/21 History Allergies Allergy/AdvReac Type Severity Reaction Status Date / Time morphine Allergy Itching Verified 05/01/21 18:11 propoxyphene AdvReac Nausea & Verified 05/01/21 18:11 [From Darvocet-N] Vomiting & Diarrhea Physical Examination Left foot/spine- Inspection- negative for any open fractures, erythhema, ecchymoses, edema. Sensation - numbness in lateral aspect left forefoot. rest of exam sensation intact, symmetric, equal Palpation - Some mild TTP on lateral aspect of left foot. NTTP throughout rest of foot/exam. Mild TTP of lumbosacral spine. NTTP throughout rest of spine exam. ROM - Full ROM in plantar flexion, eversion and inversion of left foot. Patient unable to dorsiflex left foot. Patient is able to wiggle toes. Motor - weakness in dorsiflexion left foot 1/5. plantarflexion - 5/5. knee/hip flexion and extension 5/5 Neurovascular - DP pulses intact, 2+; cap refill <3 seconds Special tests - negative Homans bilaterally; negative clonus upon dorsiflexing feet bilaterally. Results - Labs Labs: H & H 05/01/21 Range/Units 17:36 Hgb 13.1 (13.0-17.5) gm/dL Hct 42.0 (39.0-53.0) % Coagulation 05/01/21 Range/Units 17:36 INR 0.9 (<1.2) Result Diagrams: 05/01/21 17:36 05/01/21 17:36 Assessment and Plan Assessment: 1. left foot drop 2. chronic low back pain Plan: 1. Left foot drop/Chronic lower back pain - MRI lumbar spine shows some stenosis at L3-L4, L4-L5, L5-S1. AFO brace for left foot has been ordered. No emergent surgical intervention from orthopedic standpoint. Conservative measures at this time. Decadron ordered. 2. Appreciate medical management 3. GI ppx - Protonix; pepcid 4. DVT ppx - Heparin 5. PT/OT - WBAT - AFO brace will be ordered for left foot 6. Pain management - stable at this time. [place] and Gabapentin Time with Patient: Less than 30
[2021-05-03 12:28] VITALS: BP 138/85
[2021-05-03 16:54] LABS: Folate, Serum 4.1 ng/mL
[2021-05-03] MEDS ORDERED: DEXAMETHASONE SOD PHOSPHATE 10 MG/ML 1 ML VIAL IV SCH (18:00)
--- NOTE | 2021-05-07 07:24 | P.DS ---
Providers Date of admission: 05/01/21 18:29 Attending physician: Bowen Rico Consults: 05/01/21 18:30 Consult Physician Routine Consulting Provider: William Bright Consult Reason/Comments: Left foot drop Do you want consulting provider notified?: Already Contacted 05/02/21 18:56 Consult Physician Routine Consulting Provider: Apolinar Adler Consult Reason/Comments: Lumbosacral spondylosis. Has left foot drop Do you want consulting provider notified?: Yes Primary care physician: Physician Nonstaff Hospital Course: Diagnoses: Left foot weakness and numbness, mostly secondary to neuropathy from positioning during sleep, other possibility although felt less likely by neurologist secondary to number radiculopathy. History of GERD High blood pressure, Nicotine dependence Hospital course: This is a pleasant 51 years old male with past medical history of GERD. Patient presents because of left foot numbness with difficulty walking secondary to weakness in his left foot especially with dorsiflexion of one-day duration. He has chronic back pain but no headache or weakness in other parts of the body. No blurred vision or slurred speech. He has been evaluated by neurologist who recommended workup showing negative MRI for acute stroke while MRI of the lumbar spine showing multilevel degenerative disc disease, multilevel spinal stenosis especially L4-L3 and L4-L5. Also discussed herniation of L5-S1. Echocardiogram showed ejection fraction of 55-60% with normal diastolic pressure. Carotid duplex was negative. Mildly hypertension was controlled with Norvasc 5 mg Orthopedic team were consulted by neurology service who recommended no surgical intervention however at its steroids and Medrol pack on discharge upon their recommendation with close outpatient follow-up. On the day of discharge patient denies chest pain or dyspnea. No change in urine or bowel habits. No fever. Patient was cleared for discharge by neurologist and orthopedic team Left ankle orthosis is recommended by neurologist, I discussed the case with our social workerscase legal records manager who provided prescription for the patient to follow- up as an outpatient Problems and management plan were discussed with the patient and he verbalized understanding and acceptance Patient was found stable and can be discharged home however he needs follow-up as an outpatient. Patient was instructed to follow up with PCP within one week and patient agrees Patient was instructed to follow up with neurologist like Dr. Issac Mast or Dr. Issac Niño, or Dr. Grimes in one week. Patient was instructed to follow up with orthopedic Dr. Adler in one week. However patient is planned to go back to [place] and he was instructed to contact his PCP for outpatient follow-up with neurology and orthopedic team in one week and he agrees Physical exam Gen: patient is a AAOx3, no distress CVS: S1-S2, RRR, no murmur Lungs: B/L CTA, no wheezing Abdomen: soft, no distention, no tenderness, positive bowel sounds Extremity: no leg edema or induration -Neuro: Bile left foot dorsiflexion and numbness on the top dorsum of the foot. Other than that there is no evidence of focal neurological deficits upon my examination Time spent more than 35 minutes Patient Condition at Discharge: Stable Plan - Discharge Summary Discharge Rx Participant: Yes New Discharge Prescriptions: New amLODIPine [Norvasc] 5 mg PO DAILY #30 tab methylPREDNISolone Dose Pack [Medrol Dose Pack] 4 mg PO DIRECTED #21 package Nicotine 21Mg/24Hr Patch [Habitrol] 1 patch TRANSDERM DAILY 5 Days #5 patch Continue Gabapentin [Neurontin] 900 mg PO TID HYDROcodone/APAP 10-325MG [[place] 10-325] 1 tab PO Q6H PRN PRN Reason: Pain Pantoprazole Sodium [Protonix] 40 mg PO BID Discharge Medication List Gabapentin [Neurontin] 900 mg PO TID 05/01/21 [History] HYDROcodone/APAP 10-325MG [[place] 10-325] 1 tab PO Q6H PRN 05/01/21 [History] Pantoprazole Sodium [Protonix] 40 mg PO BID 05/01/21 [History] Nicotine 21Mg/24Hr Patch [Habitrol] 1 patch TRANSDERM DAILY 5 Days #5 patch 05/03/21 [Rx] amLODIPine [Norvasc] 5 mg PO DAILY #30 tab 05/03/21 [Rx] methylPREDNISolone Dose Pack [Medrol Dose Pack] 4 mg PO DIRECTED #21 package 05/03/21 [Rx] Follow up Appointment(s)/Referral(s): Calderon Davenport MD [REFERRING] - (neurologist we recommend EMG with nerve conduction study as an outpatient.) Ivon Grimes MD [Medical Doctor] - 1 Week (neurologist we recommend EMG with nerve conduction study as an outpatient.) Nonstaff,Physician [Primary Care Provider] - 1-2 days Apolinar Adler DO [Doctor of Osteopathic Medicine] - 1 Week (orthopedic surgeon ) Lalito &Jori [NON-STAFF] - Patient Instructions/Handouts: How to Stop Smoking (DC), Foot Drop (GEN) Activity/Diet/Wound Care/Special Instructions: heart healthy diet activity is restricted till you see your doctor we recommend to follow up with your primary care doctor in one week , please call to make appointment in one week, you have the contact information as you told the medical staff You will need to call [facility] to arrange being fitted for the AFO brace/boot ), if you stay within the area Prescription for AFO boot/brace given to patient. Discharge/Stand Alone Forms: Work/Release Restrictions Form Discharge Disposition: HOME SELF-CARE
== END 2021-05-03 16:17 | disposition home or self-care (01) ==
LOC: EC 15:19 → 3SCARD 18:29
PROVIDERS: ADMIT Hospitalist; ATTEND Hospitalist
DX: M47.817 Spondylosis without myelopathy or radiculopathy, lumbosacral region (principal); M47.816 Spondylosis without myelopathy or radiculopathy, lumbar region; M21.372 Foot drop, left foot; M51.27 Other intervertebral disc displacement, lumbosacral region; M48.061 Spinal stenosis, lumbar region without neurogenic claudication; M47.897 Other spondylosis, lumbosacral region; G62.9 Polyneuropathy, unspecified; I10 Essential (primary) hypertension; K21.9 Gastro-esophageal reflux disease without esophagitis; G89.29 Other chronic pain; F17.210 Nicotine dependence, cigarettes, uncomplicated; I45.10 Unspecified right bundle-branch block; N20.0 Calculus of kidney; Z79.899 Other long term (current) drug therapy; Z88.5 Allergy status to narcotic agent; Z81.8 Family history of other mental and behavioral disorders; Z84.1 Family history of disorders of kidney and ureter
CPT/HCPCS: 99285; 96372 ×2; 96374; 96375; 36415; 93005; 93306; 97116; 97161; 97530; 97535; 97165; 84439; 82747; 80061; 80053; 84443; 82607; 82746; 84484; 85025; 85610; 85730; 83036; 72110; 93880; 70450; 70551; 72158; G0378 ×3; S4990 ×2; J1100; J1644 ×2; A9585